=== PATIENT | male | born 1935 ===

== ENCOUNTER 2020-04-22 15:45 | Emergency (ER) | payer OTHER ==
[~2020-04-22] VITALS: Ht 172.7 cm; Wt 77.1 kg
[2020-04-22] MEDS ORDERED: ORPHENADRINE C100 MG PO (20:10)
[2020-04-22] MEDS ORDERED: KETO10TA2 PO (20:10)
== END 2020-04-22 20:38 | disposition home or self-care (01) ==
LOC: ER 15:45
DX: S43.492A Other sprain of left shoulder joint, initial encounter (principal); S00.81XA Abrasion of other part of head, initial encounter; R07.89 Other chest pain; W01.198A Fall on same level from slipping, tripping and stumbling with subsequent striking against other object, initial encounter; Y93.89 Activity, other specified; Y92.524 Gas station as the place of occurrence of the external cause; Y99.8 Other external cause status

== ENCOUNTER 2020-05-04 07:15 | Inpatient (IN) | payer OTHER ==
[~2020-05-04] VITALS: Ht 172.7 cm; Wt 77.1 kg
[~2020-05-04 07:15] MED LIST: KETO10TA2 PO; ORPHENADRINE C100 MG PO
[2020-05-04] MEDS ORDERED: [UNRECOGNIZED DRUG - OTHER] PO (09:01)
[2020-05-09] MEDS ORDERED: LOTREL 10-20 M1 EACH (08:11)
[2020-05-09] MEDS ORDERED: AMLODIPINE-BEN1 EAC3 PO (08:13)
[2020-05-09] MEDS ORDERED: SYNTHROID150 MCG PO (08:14)
[2020-05-09] MEDS ORDERED: DUI500 PO (08:19)
[2020-05-09] MEDS ORDERED: DICLOFENAC SODI50 MG PO (08:19)
[2020-05-09] MEDS ORDERED: PERCOCET 5-3251 EACH PO (08:19)
== END 2020-05-09 10:17 | disposition home or self-care (01) | DRG 483 ==
LOC: SURH 05-08 05:00 → O/R 05-08 05:00 → SURH 05-08 07:15
PROVIDERS: ADMIT Orthopaedic Surgery; ATTEND Orthopaedic Surgery
PROC: 0LS40ZZ Reposition Left Upper Arm Tendon, Open Approach (ICD-10-PCS; 2020-05-08)
PROC: 0RRK00Z Replacement of Left Shoulder Joint with Reverse Ball and Socket Synthetic Substitute, Open Approach (ICD-10-PCS; principal; 2020-05-08 15:15)
DX: M19.212 Secondary osteoarthritis, left shoulder (principal); I10 Essential (primary) hypertension; E03.9 Hypothyroidism, unspecified